=== PATIENT | female | born 1960 | race African-American/Black ===

== ENCOUNTER 2021-07-20 00:33 | Emergency (ER) | payer SELFPAY ==
[~2021-07-20] VITALS: Ht 154.9 cm; Wt 68.2 kg
[2021-07-20] MEDS ORDERED: KETOROLAC 60MG/2ML VIAL IM ONE (02:30)
[2021-07-20] MEDS ORDERED: CYCLOBENZAPRINE 10MG TABLET PO ONE (02:30)
[2021-07-20 03:54] VITALS: BP 135/76
[2021-07-20] MEDS ORDERED: CYCL5TAB MT (04:10)
[2021-07-20] MEDS ORDERED: IBUP-2029 MT (04:10)
== END 2021-07-20 04:55 | disposition home or self-care (01) ==
LOC: ER 00:33
DX: S16.1XXA Strain of muscle, fascia and tendon at neck level, initial encounter (principal); S39.012A Strain of muscle, fascia and tendon of lower back, initial encounter; S43.402A Unspecified sprain of left shoulder joint, initial encounter; Z98.1 Arthrodesis status; V43.52XA Car driver injured in collision with other type car in traffic accident, initial encounter; Y93.89 Activity, other specified; Y92.414 Local residential or business street as the place of occurrence of the external cause
CPT/HCPCS: 70450; 72100; 72125; 73030; 96372; 99285; J1885